=== PATIENT | female | born 1935 | race Caucasian/White ===

== ENCOUNTER → 2017-12-25 | Outpatient (CLI) | payer MEDICARE ==
[~2017-12-25] MED LIST: ALPRAZOLAM; ASPIRIN 32325 MG/TAB PO; ASPIRIN E.C. 8181 MG PO; AZOR 5 MG-40 MG1 TAB PO; BYSTOLIC10 MG PO; CATAPRES 0.1MG0.1 MG PO; CELEXA 20MG20 MG/TAB PO; DIOVAN/HCT 12.51 TAB PO; HCTZ 25MG TAB25 MG PO; IMDUR 30MG30 MG/TAB PO; IMDUR 60MG60 MG/TAB PO; LEVOXYL0.05 MG PO; LIPITOR 80MG80 MG PO; LOPRESSOR100 MG PO; MOTRIN 600600 MG/TAB PO; NITROQUICK0.4 MG SL; NORVASC 5MG5 MG/TAB PO; PLAVIX 75MG TAB75 MG PO; PREVACID 15MG15 M1; PRINIVIL20 MG PO; QUINAPRIL5 MG PO; UNABLE; VERAPAMIL; VERELAN240 MG PO; XANAX 0.5MG0.5 MG PO; XANAX0.5 MG PO; ZOCOR 20MG20 MG PO; thyroid med
== END ==
LOC: COL.RAD 14:27
DX: K80.20 Calculus of gallbladder without cholecystitis without obstruction (principal)

== ENCOUNTER 2018-01-16 14:23 | Day surgery (SDC) | payer MEDICARE ==
[~2018-01-16] VITALS: Ht 149.9 cm; Wt 85.1 kg
[2018-01-16] VITALS (89 sets, daily range): BP systolic 140–156; BP diastolic 54–84; PULSE 67–79; TEMP 97.6–98; O2SAT 96–100
[2018-01-16] MEDS ORDERED: IMDUR 60MG60 MG/TAB PO (14:54)
[2018-01-17] VITALS (215 sets, daily range): BP systolic 143–174; BP diastolic 54–86; PULSE 66–83; TEMP 97.8–98; O2SAT 83–100
[2018-01-17 05:47] LABS: HEMATOCRIT 42.4 % (37.0-47.0); HEMOGLOBIN 13.8 g/dl (12.5-16.0); MEAN CELL VOLUME 94 fl (80.0-100.0); MEAN CORPUSCULAR HEMOGLOBIN 31 pg (27.0-31.0); MEAN CORPUSCULAR HGB CONC 33 g/dl (33.0-37.0); MEAN PLATELET VOLUME 9.1 fl (7.4-10.4); PLATELET COUNT 283 K/mm3 (130-400); RED BLOOD COUNT 4.53 M/mm3 (4.10-5.30); REDCELL DISTRIBUTION WIDTH-CV 14.1 % (11.5-14.5)
[2018-01-17 05:59] LABS: CALCIUM 8.6 mg/dL (8.4-10.2); CREATININE, serum 1.08 mg/dL (0.52-1.25); POTASSIUM 4.6 mmol/L (3.4-5.0)
[2018-01-17 06:50] LABS: BAND 27 % (0-10); LYMPHOCYTE 8 % (20.0-51.0); NEUTROPHILS 62 % (42.0-75.2); PLATELET ESTIMATE NORMAL (NORMAL)
== END 2018-01-17 13:30 | disposition home or self-care (01) ==
LOC: SDCO 14:23 → ICU 22:33 → SDCO 22:42 → ICU 22:43
PROVIDERS: Nurse Practitioner
DX: K80.10 Calculus of gallbladder with chronic cholecystitis without obstruction (principal); F41.9 Anxiety disorder, unspecified; E78.00 Pure hypercholesterolemia, unspecified; K21.9 Gastro-esophageal reflux disease without esophagitis; E66.9 Obesity, unspecified; M81.0 Age-related osteoporosis without current pathological fracture; I10 Essential (primary) hypertension; F32.9 Major depressive disorder, single episode, unspecified; I25.10 Atherosclerotic heart disease of native coronary artery without angina pectoris; Z68.37 Body mass index [BMI] 37.0-37.9, adult; Z79.82 Long term (current) use of aspirin; Z80.0 Family history of malignant neoplasm of digestive organs; Z80.3 Family history of malignant neoplasm of breast; Z80.8 Family history of malignant neoplasm of other organs or systems; Z82.49 Family history of ischemic heart disease and other diseases of the circulatory system
CPT/HCPCS: OP; 99222; J0330; J1100; J2310; J2405; J2704; J2710; J2765; J3010; J7120

== ENCOUNTER 2018-05-15 14:52 | Outpatient (RCR) | payer MEDICARE | END 2018-08-13 | disposition home or self-care (01) | LOC: WSST | DX: R13.12 Dysphagia, oropharyngeal phase (principal); R06.02 Shortness of breath ==

== ENCOUNTER → 2018-05-28 | Outpatient (CLI) | payer MEDICARE | LOC: COL.RAD 14:34 | DX: R06.02 Shortness of breath (principal); R47.02 Dysphasia ==

== ENCOUNTER 2019-02-14 12:45 | Emergency (ER) | payer MEDICARE ==
[~2019-02-14] VITALS: Ht 157.5 cm; Wt 76.4 kg
[2019-02-14 12:50] VITALS: TEMP 98.4
[2019-02-14] MEDS ORDERED: NORVASC 10MG10 MG PO (13:23)
[2019-02-14] MEDS ORDERED: LIPITOR 10MG10 MG PO (13:24)
[2019-02-14] MEDS ORDERED: HCTZ 25MG TAB25 MG PO (13:25)
[2019-02-14] MEDS ORDERED: AVAPRO TAB150 MG/TAB PO (13:26)
[2019-02-14 13:27] LABS: BASO # 0.1 (0.0-0.2); BASO % 0.7 % (0.0-2.0); EOS # 0.1 (0.0-0.7); EOS % 1.1 % (0-4.0); GRAN # 6.3 (1.4-6.5); GRAN % 67.9 % (42.2-75.2); HEMATOCRIT 42.9 % (37.0-47.0); HEMOGLOBIN 14.2 g/dl (12.5-16.0); LYMPH # 2.1 (1.2-3.4); LYMPH % 23.1 % (20.0-51.0); MEAN CELL VOLUME 92 fl (80.0-100.0); MEAN CORPUSCULAR HEMOGLOBIN 30 pg (27.0-31.0); MEAN CORPUSCULAR HGB CONC 33 g/dl (33.0-37.0); MEAN PLATELET VOLUME 8.9 fl (7.4-10.4); MONO # 0.6 (0.1-0.6); MONO % 6.9 % (1.7-9.3); PLATELET COUNT 344 K/mm3 (130-400); RED BLOOD COUNT 4.69 M/mm3 (4.10-5.30); REDCELL DISTRIBUTION WIDTH-CV 14.5 % (11.5-14.5)
[2019-02-14] MEDS ORDERED: SYNTHROID0.05 MG/TA PO (13:27)
[2019-02-14 13:35] LABS: ALANINE AMINOTRANSFERASE < 6 U/L (9-52); ALBUMIN 4.2 gm/dL (3.5-5.0); ALKALINE PHOSPHATASE 124 U/L (50-136); ANION GAP 11 mmol/L (7-16); AST,SGOT 19 U/L (15-37); BILIRUBIN,TOTAL 1.1 mg/dL (0.0-1.0); BLOOD UREA NITROGEN 20 mg/dL (7-17); CALCIUM 8.9 mg/dL (8.4-10.2); CARBON DIOXIDE 27 mmol/L (22-30); CHLORIDE 100 mmol/L (98-107); CREATININE, serum 1.29 (0.52-1.25); GLUCOSE 120 mg/dL (74-106); POTASSIUM 4.3 mmol/L (3.4-5.0); SODIUM 138 mmol/L (137-145); TOTAL PROTEIN 7.9 gm/dL (6.4-8.2)
[2019-02-14 13:39] LABS: ACETAMINOPHEN < 10 ug/mL (10-30); ALCOHOL(ethanol),MEDICAL < 10 mg/dL
[2019-02-14 14:19] LABS: COLLECTION METHOD CLEAN CATCH
[2019-02-14 14:42] LABS: MUCOUS Present /lpf; PH 5 (5-8); SQUAMOUS EPITHELIAL 0-2 /hpf; URINE APPEARANCE Hazy; URINE BACTERIA None Seen /hpf; URINE BILIRUBIN Negative (NEGATIVE); URINE BLOOD Negative (NEGATIVE); URINE COLOR Yellow; URINE GLUCOSE Negative (NEGATIVE); URINE KETONE Negative (NEGATIVE); URINE LEUKOCYTE ESTERASE 2+ (NEGATIVE); URINE NITRATE Negative (NEGATIVE); URINE PROTEIN(semi-quant) Negative (NEGATIVE)
[2019-02-14 14:44] LABS: TRICYCLIC ANTIDEPRESS URINE NEGATIVE
[2019-02-14] MEDS ORDERED: CEFTIN 250250 MG/TAB PO ×2 (17:50)
[2019-02-14 18:59] VITALS: BP 148/78; PULSE 71
[2019-02-15] MEDS ORDERED: CEFTIN 250250 MG/TAB PO (10:07)
== END 2019-02-14 19:00 | disposition home or self-care (01) ==
LOC: COL.ER 12:45
PROVIDERS: Family Medicine
DX: T43.222A Poisoning by selective serotonin reuptake inhibitors, intentional self-harm, initial encounter (principal); N39.0 Urinary tract infection, site not specified; I25.10 Atherosclerotic heart disease of native coronary artery without angina pectoris; I10 Essential (primary) hypertension; F32.9 Major depressive disorder, single episode, unspecified; Z79.82 Long term (current) use of aspirin
CPT/HCPCS: J7030

== ENCOUNTER 2019-02-26 13:40 | Outpatient (CLI) | payer MEDICARE ==
[~2019-02-26] VITALS: Ht 157.5 cm; Wt 77.0 kg
[~2019-02-26 13:40] MED LIST changes: +AVAPRO TAB150 MG/TAB PO; +CEFTIN 250250 MG/TAB PO; +LIPITOR 10MG10 MG PO; +NORVASC 10MG10 MG PO; +SYNTHROID0.05 MG/TA PO
[2019-02-26] MEDS ORDERED: CEFTIN 250250 MG/TAB PO (14:29)
[2019-02-26 14:32] VITALS: BP 143/70; PULSE 60; TEMP 97.9
--- NOTE | 2019-02-26 16:04 | NUR ---
report from Martha Dumont.Dressing observed clean,dry,intact.
[2019-02-26 16:05] VITALS: BP 145/60; PULSE 64
--- NOTE | 2019-02-26 16:32 | NUR ---
Discharge instructions gien to pt.pt verbalizes understanding.pt escorted out by this nurse.
== END 2019-02-26 16:32 | disposition home or self-care (01) ==
LOC: COL.CAR 13:40
DX: I48.91 Unspecified atrial fibrillation (principal); R55 Syncope and collapse; I25.10 Atherosclerotic heart disease of native coronary artery without angina pectoris; I10 Essential (primary) hypertension; R00.1 Bradycardia, unspecified; Z88.6 Allergy status to analgesic agent; Z79.899 Other long term (current) drug therapy; Z79.82 Long term (current) use of aspirin; Z82.3 Family history of stroke
CPT/HCPCS: C1764

== ENCOUNTER 2020-04-27 15:08 | Emergency (ER) | payer MEDICARE ==
[~2020-04-27] VITALS: Ht 160 cm; Wt 72.7 kg
[2020-04-27 15:55] LABS: BASO # 0.1 (0.0-0.2); BASO % 0.5 % (0.0-2.0); EOS # 0.3 (0.0-0.7); EOS % 2.3 % (0-4.0); GRAN # 7.4 (1.4-6.5); GRAN % 61.6 % (42.2-75.2); HEMATOCRIT 44.7 % (37.0-47.0); HEMOGLOBIN 14.9 g/dl (12.5-16.0); LYMPH # 3.4 (1.2-3.4); LYMPH % 28.5 % (20.0-51.0); MEAN CELL VOLUME 91 fl (80.0-100.0); MEAN CORPUSCULAR HEMOGLOBIN 30 pg (27.0-31.0); MEAN CORPUSCULAR HGB CONC 33 g/dl (33.0-37.0); MEAN PLATELET VOLUME 8.7 fl (7.4-10.4); MONO # 0.8 (0.1-0.6); MONO % 6.7 % (1.7-9.3); PLATELET COUNT 334 K/mm3 (130-400); RED BLOOD COUNT 4.92 M/mm3 (4.10-5.30); REDCELL DISTRIBUTION WIDTH-CV 14.1 % (11.5-14.5)
[2020-04-27 16:00] LABS: PROTHROMBIN TIME 11.1 SECONDS (9.7-12.8)
[2020-04-27 16:03] LABS: PARTIAL THROMBOPLASTIN TIME 33.8 SECONDS (26.0-37.0)
[2020-04-27 17:47] VITALS: BP 153/71; PULSE 68
== END 2020-04-27 17:49 | disposition home or self-care (01) ==
LOC: COL.ER 15:08
PROVIDERS: Physician Assistant
DX: S06.0X0A Concussion without loss of consciousness, initial encounter (principal); S01.01XA Laceration without foreign body of scalp, initial encounter; S76.011A Strain of muscle, fascia and tendon of right hip, initial encounter; S76.911A Strain of unspecified muscles, fascia and tendons at thigh level, right thigh, initial encounter; I10 Essential (primary) hypertension; E03.9 Hypothyroidism, unspecified; F41.9 Anxiety disorder, unspecified; F32.9 Major depressive disorder, single episode, unspecified; I48.91 Unspecified atrial fibrillation; I25.10 Atherosclerotic heart disease of native coronary artery without angina pectoris; Z90.89 Acquired absence of other organs; Z88.6 Allergy status to analgesic agent; Z79.82 Long term (current) use of aspirin; Z79.890 Hormone replacement therapy; W00.0XXA Fall on same level due to ice and snow, initial encounter
CPT/HCPCS: J2405; J3010; J7030

== ENCOUNTER → 2020-05-05 | Outpatient (CLI) | payer MEDICARE ==
[2020-05-05 15:10] VITALS: BP 155/74; PULSE 64; TEMP 97.6
== END ==
LOC: COL.ER 14:58
DX: Z48.02 Encounter for removal of sutures (principal)

== ENCOUNTER 2021-03-22 13:28 | Observation (INO) | payer MEDICARE ==
[~2021-03-22] VITALS: Ht 162.6 cm; Wt 78.6 kg
[2021-03-22 13:59] LABS: BASO # 0.1 K/mm3 (0.0-0.2); BASO % 0.6 % (0.0-2.0); EOS # 0.3 K/mm3 (0.0-0.7); EOS % 2.8 % (0-4.0); GRAN # 5.6 K/mm3 (1.4-6.5); HEMATOCRIT 41.2 % (37.0-47.0); HEMOGLOBIN 13.8 g/dl (12.5-16.0); LYMPH # 2.5 K/mm3 (1.2-3.4); LYMPH % 27.8 % (20.0-51.0); MEAN CELL VOLUME 91 fl (80.0-100.0); MEAN CORPUSCULAR HEMOGLOBIN 30 pg (27.0-31.0); MEAN CORPUSCULAR HGB CONC 34 g/dl (33.0-37.0); MEAN PLATELET VOLUME 9.3 fl (7.4-10.4); MONO # 0.6 K/mm3 (0.1-0.6); MONO % 6.6 % (1.7-9.3); PLATELET COUNT 309 K/mm3 (130-400); RED BLOOD COUNT 4.55 M/mm3 (4.10-5.30); REDCELL DISTRIBUTION WIDTH-CV 14.3 % (11.5-14.5)
[2021-03-22 14:06] LABS: PROTHROMBIN TIME 11.6 SECONDS (9.7-12.8)
[2021-03-22 14:08] LABS: PARTIAL THROMBOPLASTIN TIME 31.6 SECONDS (26.0-37.0)
[2021-03-22 14:34] LABS: ALANINE AMINOTRANSFERASE 62 U/L (0-55); ALBUMIN 3.7 gm/dL (3.4-4.8); ALKALINE PHOSPHATASE 244 U/L (40-150); ANION GAP 11 mmol/L (7-16); AST,SGOT 118 U/L (5-34); BLOOD UREA NITROGEN 20 mg/dL (10-20); CALCIUM 9.6 mg/dL (8.4-10.2); CARBON DIOXIDE 26 mmol/L (23-31); CHLORIDE 101 mmol/L (98-107); GLUCOSE 138 mg/dL (70-99); POTASSIUM 3.5 mmol/L (3.5-4.5); SODIUM 138 mmol/L (136-145); TOTAL PROTEIN 7.6 gm/dL (6.2-8.1)
[2021-03-22 15:07] LABS: TROPONIN-I < 0.010 ng/mL (0.00-0.033)
[2021-03-22] MEDS ORDERED: LIPITOR20 MG PO (16:35)
[2021-03-22] MEDS ORDERED: CELEXA40 MG PO (16:36)
[2021-03-22] MEDS ORDERED: PREDFORTE5ML OP (16:39)
--- NOTE | 2021-03-22 16:58 | NUR ---
[facility] met with patient in the ED as there were concerns about patient's , Cas being home alone. SW met with patient who advised she and Cas live in [place] and she thinks a neighbor, Letty Villalta may be with Cas right now, but she is unsure. Patient gave SW her "home" phone number but when SW called it while in patient's room, patient' cell phone rang and this was the phone SW called. Patient states they actually don't have a home phone. Patient is to be admitted to the hospital for overnight observation. Patient states her Cas can walk with a walker, can get to the bathroom, and that there is plenty of food at home. LAST contacted patient's daughter Guillermina who advised she could not check on Cas and she lives in [place] and could not take him home if needed, but her sister Savita is in [place] and plans to stop by to check on Cas and bring him supper. LAST updated ED RN, Tunde.
--- NOTE | 2021-03-22 17:40 | NUR ---
PT TO FLOOR RM 325 PER CART FROM ED REPORT FROM JOSEPH.
--- NOTE | 2021-03-22 17:54 | NUR ---
HEP XA RESULTED @1.01 HEPARIN RUNNING @9.5 MLS/HR, THIEN LAB TO VERIFY.
--- NOTE | 2021-03-22 18:26 | NUR ---
CALLED CRITICAL LAB TO [facility]. STOPPED HEPARIN PER ORDER SET. NEXT HEP XA@ 2029.
--- NOTE | 2021-03-22 18:45 | NUR ---
RECEIVED CHANGE OF SHIFT REPORT FROM DAY SHIFT NURSE.
[2021-03-22 19:00] VITALS: BP 128/50; PULSE 54; TEMP 97.3
--- NOTE | 2021-03-22 21:58 | NUR ---
ATTEMPTED TO CALL DAUGHTER, KAYLEE BATISTA, FOR CONSENT FOR SCHEDULED PROCEDURE ON 03/23, CALL WAS NOT PICKED UP, LMOM FOR DAUGHTER TO CALL THIS NURSE.
[2021-03-22 23:59] VITALS: BP 129/40; PULSE 57; TEMP 97.8
[2021-03-23] VITALS (12 sets, daily range): BP systolic 117–151; BP diastolic 41–56; PULSE 55–62; TEMP 97.8–98
[2021-03-23 03:07] LABS: BASO # 0.1 K/mm3 (0.0-0.2); BASO % 0.8 % (0.0-2.0); EOS # 0.5 K/mm3 (0.0-0.7); EOS % 6.5 % (0-4.0); GRAN # 3.8 K/mm3 (1.4-6.5); GRAN % 52.6 % (42.2-75.2); HEMATOCRIT 37.6 % (37.0-47.0); HEMOGLOBIN 12.6 g/dl (12.5-16.0); LYMPH # 2.3 K/mm3 (1.2-3.4); MEAN CELL VOLUME 90 fl (80.0-100.0); MEAN CORPUSCULAR HEMOGLOBIN 30 pg (27.0-31.0); MEAN CORPUSCULAR HGB CONC 34 g/dl (33.0-37.0); MEAN PLATELET VOLUME 9.1 fl (7.4-10.4); MONO # 0.6 K/mm3 (0.1-0.6); PLATELET COUNT 284 K/mm3 (130-400); RED BLOOD COUNT 4.16 M/mm3 (4.10-5.30); REDCELL DISTRIBUTION WIDTH-CV 14.4 % (11.5-14.5)
[2021-03-23 03:24] LABS: CALCIUM 8.7 mg/dL (8.4-10.2); CHOLESTEROL RISK RATIO 4.6; CREATININE, serum 1.09 mg/dL (0.57-1.11); POTASSIUM 4.6 mmol/L (3.5-4.5)
--- NOTE | 2021-03-23 06:17 | NUR ---
ATTEMPTED TO CONTACT PATIENT'S DAUGHTER, KAYLEE BATISTA, WITH NO PICKING UP OF CALL. LMOM FOR KAYLEE TO CALL [facility] TO CONFIRM IF DOCTOR SPOKE WITH DAUGHTER AND FOR CONSENT FOR SCHEDULED PROCEDURE TODAY. WAITING ACCOUNTS PAYABLE BOOKKEEPER BACK.
--- NOTE | 2021-03-23 07:03 | NUR ---
CHANGE OF SHIFT REPORT GIVEN TO DAY SHIFT NURSE, GRETTA ROSA.
--- NOTE | 2021-03-23 09:24 | NUR ---
SEE MERGE DOCUMENTATION FOR MEDICATION ADMINISTRATION AND INTRA/POST PROCEDURE SEDATION ASSESSMENTS.
--- NOTE | 2021-03-23 10:51 | NUR ---
PT RETURNED FROM [facility] PER BED. PT REMAINS FLAT WITH HEAD LOWER THAN 30 DEGREES. PT DENIES NEEDS. DRESSING TO RIGHT GROIN CDI NO DRAINAGE NOTED.
[2021-03-23] MEDS ORDERED: LIPITOR 80MG80 MG PO (11:35)
[2021-03-23] MEDS ORDERED: ISOSORBIDE MON120 MG PO (11:35)
[2021-03-23] MEDS ORDERED: NITROSTAT0.4 MG/TAB SL (11:37)
--- NOTE | 2021-03-23 13:41 | NUR ---
Telemetry Nurse met with patient to discuss discharge planning as she is going to discharge home today. Patient lives in [place] with her , Cas and sees Dr. Pillai for primary care. Patient obtains medications from [facility] and advised that she has applied for Medicaid in the past but has been denied. Patient does not use any DME but states she has a wheelchair and three walkers at home. Patient states she is independent with ADLS and plans to return home upon discharge. Patient does not have Advance Directives and is not interested in completing DPOA-HC at this time. Patient states her daughter, July is at home with Cas today and will pick her up at time of discharge. Discharge Plan: Home
--- NOTE | 2021-03-23 15:29 | NUR ---
DISCHARGE INSTRUCTIONS REVIEWED WITH PT AND DAUGHTER. PT LEFT FLOOR AMBULATORY.
== END 2021-03-23 15:00 | disposition home or self-care (01) ==
LOC: COL.ER 13:28 → SURG 14:42
PROVIDERS: Family Medicine; Physician Assistant; ADMIT Internal Medicine
DX: I25.10 Atherosclerotic heart disease of native coronary artery without angina pectoris (principal); I10 Essential (primary) hypertension; E03.9 Hypothyroidism, unspecified; E78.5 Hyperlipidemia, unspecified; F32.A Depression, unspecified; F41.9 Anxiety disorder, unspecified; Z95.1 Presence of aortocoronary bypass graft; Z90.89 Acquired absence of other organs; Z79.890 Hormone replacement therapy; Z79.899 Other long term (current) drug therapy; Z79.82 Long term (current) use of aspirin; Z83.3 Family history of diabetes mellitus
CPT/HCPCS: C1760; C1769; C1887; C1894; G0378; J0153; J1644; J2250; J3010; Q9967

== ENCOUNTER 2021-11-16 00:24 | Emergency (ER) | payer MEDICARE ==
[~2021-11-16] VITALS: Ht 162.6 cm; Wt 77.3 kg
[~2021-11-16 00:24] MED LIST changes: +CELEXA40 MG PO; +ISOSORBIDE MON120 MG PO; +LIPITOR20 MG PO; +NITROSTAT0.4 MG/TAB SL; +PREDFORTE5ML OP
[2021-11-16 00:25] VITALS: TEMP 98.2
[2021-11-16 02:31] LABS: BASO % 0.4 % (0.0-2.0); EOS # 0.3 K/mm3 (0.0-0.7); EOS % 3.4 % (0.0-4.0); GRAN # 5.5 K/mm3 (1.4-6.5); GRAN % 59.4 % (42.2-75.2); HEMOGLOBIN 11.8 g/dl (12.5-16.0); LYMPH # 2.4 K/mm3 (1.2-3.4); LYMPH % 26.2 % (20.0-51.0); MEAN CELL VOLUME 91 fl (80.0-100.0); MEAN CORPUSCULAR HEMOGLOBIN 30 pg (27-31); MEAN CORPUSCULAR HGB CONC 33 g/dl (33.0-37.0); MEAN PLATELET VOLUME 9.1 fl (7.4-10.4); MONO % 10.3 % (1.7-9.3); PLATELET COUNT 280 K/mm3 (130-400); RED BLOOD COUNT 3.94 M/mm3 (4.10-5.30); REDCELL DISTRIBUTION WIDTH-CV 14.3 % (11.5-14.5)
[2021-11-16 02:33] LABS: HEMATOCRIT 35.7 % (37.0-47.0)
[2021-11-16 02:49] LABS: ALBUMIN 3.3 gm/dL (3.4-4.8); C-REACTIVE PROTEIN 0.52 mg/dL (0.00-0.50); CALCIUM 8.2 mg/dL (8.4-10.2); CREATININE, serum 1.33 mg/dL (0.57-1.11); POTASSIUM 3.5 mmol/L (3.5-4.5); TOTAL PROTEIN 6.8 gm/dL (6.2-8.1)
[2021-11-16 02:51] LABS: COLLECTION METHOD CLEAN CATCH
[2021-11-16 03:05] LABS: MUCOUS Present (NOT PRESENT); PH 5 (5-8); URINE APPEARANCE Cloudy (CLEAR/HAZY); URINE BACTERIA Rare /hpf (NONE SEEN); URINE BLOOD Negative (NEGATIVE); URINE COLOR Yellow (YELLOW); URINE GLUCOSE Negative (NEGATIVE); URINE KETONE Negative (NEGATIVE); URINE NITRATE Negative (NEGATIVE); URINE PROTEIN(semi-quant) Negative (NEGATIVE)
[2021-11-16] MEDS ORDERED: ROXICODONE 55 MG/TAB PO (04:36)
[2021-11-16 04:55] VITALS: BP 118/65; PULSE 51
== END 2021-11-16 04:55 | disposition home or self-care (01) ==
LOC: COL.ER 00:24
PROVIDERS: Family Medicine
DX: M54.9 Dorsalgia, unspecified (principal); Z88.6 Allergy status to analgesic agent
CPT/HCPCS: J2360; J3010; Q9967

== ENCOUNTER 2021-12-11 07:07 | Inpatient (IN) | payer MEDICARE ==
[~2021-12-11] VITALS: Ht 160 cm; Wt 77.0 kg
[~2021-12-11 07:07] MED LIST changes: +ROXICODONE 55 MG/TAB PO
[2021-12-11 08:27] LABS: BASO % 0.3 % (0.0-2.0); EOS # 0.1 K/mm3 (0.0-0.7); EOS % 0.8 % (0.0-4.0); GRAN # 7.2 K/mm3 (1.4-6.5); GRAN % 75.2 % (42.2-75.2); HEMOGLOBIN 12.2 g/dl (12.5-16.0); LYMPH # 1.4 K/mm3 (1.2-3.4); LYMPH % 14.7 % (20.0-51.0); MEAN CELL VOLUME 89 fl (80.0-100.0); MEAN CORPUSCULAR HEMOGLOBIN 30 pg (27-31); MEAN CORPUSCULAR HGB CONC 34 g/dl (33.0-37.0); MEAN PLATELET VOLUME 9.1 fl (7.4-10.4); MONO # 0.8 K/mm3 (0.1-0.6); MONO % 8.6 % (1.7-9.3); PLATELET COUNT 342 K/mm3 (130-400); RED BLOOD COUNT 4.04 M/mm3 (4.10-5.30); REDCELL DISTRIBUTION WIDTH-CV 14.8 % (11.5-14.5)
[2021-12-11 08:43] LABS: ALBUMIN 3.2 gm/dL (3.4-4.8); CREATININE, serum 1.32 mg/dL (0.57-1.11); POTASSIUM 3.4 mmol/L (3.5-4.5); TOTAL PROTEIN 7.1 gm/dL (6.2-8.1)
[2021-12-11 08:50] LABS: TROPONIN-I 0.023 ng/mL (0.00-0.033)
[2021-12-11 10:20] LABS: COLLECTION METHOD CLEAN CATCH
[2021-12-11 10:27] LABS: MUCOUS Present (NOT PRESENT); SQUAMOUS EPITHELIAL 0-2 /hpf (0-10); URINE BACTERIA None Seen /hpf (NONE SEEN)
[2021-12-11 10:28] LABS: URINE APPEARANCE Clear (CLEAR/HAZY); URINE COLOR Yellow (YELLOW)
[2021-12-11 10:29] LABS: URINE BLOOD Negative (NEGATIVE); URINE GLUCOSE Negative (NEGATIVE); URINE KETONE Negative (NEGATIVE); URINE NITRATE Negative (NEGATIVE); URINE PROTEIN(semi-quant) Negative (NEGATIVE); URINE UROBILINOGEN 0.2 E.U/dL (0.2-1.0)
[2021-12-11 12:30] VITALS: BP 155/55; PULSE 59
--- NOTE | 2021-12-11 13:00 | NUR ---
Pt up to the floor recently from ED. She is alert and oriented. Was told that she was immobile. Pt did come from home. Asked if she could scoot herself from ED cart to bed. She stated that she could not move. With little encouragement, she was able to easily scoot herself. Oriented her to her room and educated her on room service. Pt reported that she does not use O2 at home. When completing her med rec, she stated that she ran out of pain medication.
[2021-12-11] MEDS ORDERED: SYNTHROID0.075 MG/T PO (14:03)
[2021-12-11] MEDS ORDERED: ISOSORBIDE MON120 MG PO (14:06)
[2021-12-11 15:21] VITALS: BP 155/51; PULSE 58; TEMP 99.6
--- NOTE | 2021-12-11 15:47 | NUR ---
After talking with family, pt is supposed to be using O2 at home but refuses to. Pt also had scripts for pain medication in which primary stated to just call when she runs out if she still needs them. Asked pt if there were issues getting prescriptions filled and she then stated that she thought they were making her nauseated so she quit taking them. Educated pt on using the purwick as she was not wanting to have to get up after explaining the Lasix to her. Pt was okay with this. When we went in to bucket hooker the purwick, she stated she was not going to use it. Informed her she would have to get up to use the restroom then or use bed eastman, she refused those as well. When I asked the pt how she planned on going to the bathroom she replied with, Well I hadn't thought about that. Pt now ok with purwick.
--- NOTE | 2021-12-11 17:06 | NUR ---
Pt reports feeling better, she appears to be a lot calmer as well. All scheduled morning medications that she did not take at home were given. Pt did eat and tolerate saltine crackers when she took her pills. No other needs, call light within reach
[2021-12-11 20:21] VITALS: BP 136/49; PULSE 56; TEMP 97.5
[2021-12-11 23:56] VITALS: BP 146/49; PULSE 86; TEMP 98.6
[2021-12-12 05:09] VITALS: BP 142/48; PULSE 62; TEMP 97.8
[2021-12-12 06:45] LABS: BASO % 0.4 % (0.0-2.0); EOS # 0.1 K/mm3 (0.0-0.7); EOS % 1.3 % (0.0-4.0); GRAN # 6.9 K/mm3 (1.4-6.5); GRAN % 68.7 % (42.2-75.2); HEMOGLOBIN 11.7 g/dl (12.5-16.0); LYMPH # 1.9 K/mm3 (1.2-3.4); LYMPH % 19.4 % (20.0-51.0); MEAN CELL VOLUME 91 fl (80.0-100.0); MEAN CORPUSCULAR HEMOGLOBIN 30 pg (27-31); MEAN CORPUSCULAR HGB CONC 33 g/dl (33.0-37.0); MEAN PLATELET VOLUME 9.9 fl (7.4-10.4); MONO % 9.8 % (1.7-9.3); PLATELET COUNT 348 K/mm3 (130-400); RED BLOOD COUNT 3.88 M/mm3 (4.10-5.30); REDCELL DISTRIBUTION WIDTH-CV 14.9 % (11.5-14.5)
[2021-12-12 06:48] LABS: HEMATOCRIT 35.3 % (37.0-47.0)
[2021-12-12 06:54] LABS: ALBUMIN 2.9 gm/dL (3.4-4.8); CALCIUM 8.4 mg/dL (8.4-10.2); CREATININE, serum 1.27 mg/dL (0.57-1.11); MAGNESIUM 1.7 mg/dL (1.6-2.6); PHOSPHOROUS 4.1 mg/dL (2.3-4.7); POTASSIUM 3.2 mmol/L (3.5-4.5)
[2021-12-12 07:23] VITALS: BP 129/47; PULSE 56; TEMP 97.4
--- NOTE | 2021-12-12 08:37 | NUR ---
PT RESTING IN BED. MORNING MEDICATIONS GIVEN. SHIFT ASSESSMENT COMPLETED. PT REPORTS PAIN TO BACK AND HIPS, HEATING PAD IN PLACE. PT CURRENTLY REQUIRING 4L VIA NC. PUREWICK IN PLACE. PT DENIES ANY NEEDS AT THIS TIME. WILL CONTINUE TO MONITOR.
--- NOTE | 2021-12-12 10:49 | NUR ---
spo2 95% on 4 lpm nc at rest
[2021-12-12] MEDS ORDERED: DOXYCYCLINE 10100 MG PO (10:57)
[2021-12-12 11:43] VITALS: BP 131/49; PULSE 52; TEMP 97.6
--- NOTE | 2021-12-12 13:28 | NUR ---
cabinet worker met with patient to complete intake and discuss discharge plan. Patient reports that she lives at home with her Cas and and is his primary technical support assistant. Patient reports that Cas has home health services established through the [facility] and she is established with [facility] for PT/OT services.Patient reports that she is independent with her ADL's and does utilize a rollator walker to assist with ambulation. Patient does not currently have home oxygen needs but she will most likely need established at the time of discharge. SW spoke with patient about this and she would like to be established with [facility]. PCP is Dr. Pillai and she utilizes [facility] for prescriptions. Patient reports that she does not have a DPOA-HC established but does have a living will locted in her EMR. Patient is provided education on a DPOA-HC and states that she is fine with Cas being her decision maker. Discharge plan: Home with [facility]
[2021-12-12 15:47] VITALS: BP 105/44; PULSE 52; TEMP 98.3
--- NOTE | 2021-12-12 16:07 | NUR ---
Patients clinical information and signed DME order faxed to [facility]. LAST called and spoke with Cas who confirms they got the order and were working on the order. Informed Cas that the patient will need a tank brought up to the hospital and to deliver the rest of the supplies later tonight.
--- NOTE | 2021-12-12 16:19 | NUR ---
Nikole: [facility] Situation: Software Systems Architect went to room on rounds Background: PT was sitting up in bed content Assessment: PT has no needs right now, appreciated the visit Recommendation: Software Systems Architect will follow up as needed
[2021-12-12 20:51] VITALS: BP 139/51; PULSE 58; TEMP 97.9
[2021-12-13 00:18] VITALS: BP 127/54; PULSE 55; TEMP 98.4
[2021-12-13 04:14] VITALS: BP 128/46; PULSE 54; TEMP 97.3
--- NOTE | 2021-12-13 05:07 | NUR ---
pt on 4L O2 per NC, up to bsc with assist of 1, oxycodone for pain x2 this shift, has to be reminded to ask for pain meds. using kpad in bed.
[2021-12-13 06:09] LABS: BASO # 0.1 K/mm3 (0.0-0.2); BASO % 0.6 % (0.0-2.0); EOS # 0.5 K/mm3 (0.0-0.7); EOS % 5.4 % (0.0-4.0); GRAN # 5.7 K/mm3 (1.4-6.5); GRAN % 60.3 % (42.2-75.2); HEMOGLOBIN 10.9 g/dl (12.5-16.0); LYMPH # 2.2 K/mm3 (1.2-3.4); LYMPH % 22.9 % (20.0-51.0); MEAN CELL VOLUME 89 fl (80.0-100.0); MEAN CORPUSCULAR HEMOGLOBIN 30 pg (27-31); MEAN CORPUSCULAR HGB CONC 34 g/dl (33.0-37.0); MEAN PLATELET VOLUME 9.7 fl (7.4-10.4); MONO % 10.5 % (1.7-9.3); PLATELET COUNT 335 K/mm3 (130-400); RED BLOOD COUNT 3.62 M/mm3 (4.10-5.30); REDCELL DISTRIBUTION WIDTH-CV 15.2 % (11.5-14.5)
[2021-12-13 06:14] LABS: HEMATOCRIT 32.3 % (37.0-47.0)
[2021-12-13 06:32] LABS: ALBUMIN 2.6 gm/dL (3.4-4.8); CALCIUM 8.2 mg/dL (8.4-10.2); CREATININE, serum 1.83 mg/dL (0.57-1.11); MAGNESIUM 1.9 mg/dL (1.6-2.6); PHOSPHOROUS 3.5 mg/dL (2.3-4.7); POTASSIUM 3.8 mmol/L (3.5-4.5)
[2021-12-13 08:00] VITALS: BP 163/63; PULSE 53; TEMP 98
--- NOTE | 2021-12-13 09:02 | NUR ---
PT RESTING IN BED. MORNING MEDICATIONS GIVEN. SHIFT ASSESSMENT COMPLETED. PT REPORTING MODERATE PAIN TO BACK AND HIPS, HEATING PAD IN PLACE. PT CURRENTLY ON 5L O2 VIA NC. PT DENIES ANY OTHER NEEDS AT THIS TIME. AMBULATING WELL WITH WALKER TO COMMODE AND BACK. WILL CONTINUE TO MONITOR.
[2021-12-13] MEDS ORDERED: OXYGEN NASAL.CANN (10:55)
[2021-12-13 11:17] VITALS: BP 132/46; PULSE 54; TEMP 97.8
--- NOTE | 2021-12-13 12:34 | NUR ---
DISCHARGE INSTRUCTIONS GIVEN, ALL QUESTIONS ANSWERED. IV D/C. TELE D/C.
--- NOTE | 2021-12-13 13:16 | NUR ---
PT ESCORTED DOWN WITH PERSONAL BELONGINGS. WILL D/C FROM SYSTEM.
--- NOTE | 2021-12-13 13:27 | NUR ---
Contacted made with [facility] to notify of the patient's discharge so they can get her home concentrator out to her. Nitin with [facility] contacted and notified of the patient's discharge. Clinical updates and discharge orders faxed to Nitin.
== END 2021-12-13 13:16 | disposition home health service (06) | DRG 193 ==
LOC: COL.ER 07:07 → MEDICAL 11:14
PROVIDERS: Emergency Medicine; ADMIT Internal Medicine
DX: J18.9 Pneumonia, unspecified organism (principal); J96.01 Acute respiratory failure with hypoxia; I21.A1 Myocardial infarction type 2; M48.56XA Collapsed vertebra, not elsewhere classified, lumbar region, initial encounter for fracture; I10 Essential (primary) hypertension; F32.A Depression, unspecified; F41.9 Anxiety disorder, unspecified; I16.0 Hypertensive urgency; Z20.822 Contact with and (suspected) exposure to COVID-19; E78.5 Hyperlipidemia, unspecified; E03.9 Hypothyroidism, unspecified; I48.91 Unspecified atrial fibrillation; I25.10 Atherosclerotic heart disease of native coronary artery without angina pectoris; Z88.8 Allergy status to other drugs, medicaments and biological substances; Z98.51 Tubal ligation status; Z95.5 Presence of coronary angioplasty implant and graft; Z90.49 Acquired absence of other specified parts of digestive tract; Z79.82 Long term (current) use of aspirin; Z79.890 Hormone replacement therapy
CPT/HCPCS: J0696; J1644; J1940; J2270; J3010; J3475; Q9967

== ENCOUNTER → 2021-12-23 | Outpatient (CLI) | payer MEDICARE ==
[~2021-12-23] MED LIST changes: +DOXYCYCLINE 10100 MG PO; +OXYGEN NASAL.CANN; +SYNTHROID0.075 MG/T PO
== END ==
LOC: COL.RAD 09:12
DX: S32.020A Wedge compression fracture of second lumbar vertebra, initial encounter for closed fracture (principal); X58.XXXA Exposure to other specified factors, initial encounter
CPT/HCPCS: A9503